=== PATIENT | male | born 2000 | race African-American/Black ===

== ENCOUNTER 2020-11-24 13:39 | Emergency (ER) | payer OTHER ==
[~2020-11-24] VITALS: Ht 170.2 cm; Wt 70.3 kg
[2020-11-24 13:48] VITALS: BP 116/56
== END 2020-11-24 15:27 | disposition home or self-care (01) ==
LOC: ER 13:39
DX: S60.222A Contusion of left hand, initial encounter (principal); V87.8XXA Person injured in other specified noncollision transport accidents involving motor vehicle (traffic), initial encounter; Y93.I9 Activity, other involving external motion; Y92.488 Other paved roadways as the place of occurrence of the external cause; Y99.8 Other external cause status

== ENCOUNTER 2020-12-09 14:58 | Emergency (ER) | payer OTHER ==
[~2020-12-09] VITALS: Ht 170.2 cm; Wt 72.1 kg
[2020-12-09 16:52] VITALS: BP 103/70
== END 2020-12-09 16:56 | disposition home or self-care (01) ==
LOC: ER 14:58
DX: S81.012A Laceration without foreign body, left knee, initial encounter (principal); M79.642 Pain in left hand; W22.01XA Walked into wall, initial encounter; Y93.02 Activity, running; Y92.89 Other specified places as the place of occurrence of the external cause; Y99.9 Unspecified external cause status